=== PATIENT | female | born 1975 | race Hispanic/Latino ===

== ENCOUNTER 2018-01-17 21:06 | Observation (INO) | payer MEDICARE ==
[2018-01-17] MEDS ORDERED: NACL 0.9% 1000 ML 1,000 ML IV ONE (21:35)
[2018-01-17 22:11] LABS: Alanine Aminotransferase 9 units/L (7-56); Albumin 3.4 g/dL (3.9-5); BUN/Creatinine Ratio 17; Blood Urea Nitrogen 10 mg/dL (7-17); Calcium 8.3 mg/dL (8.4-10.2); Hemolysis Index 1
[2018-01-17] MEDS ORDERED: D50W (25GM) Syringe IV ONE ×2 (22:54→22:58)
[2018-01-18 00:12] LABS: WBC,Urine < 1.0 /HPF (0.0-6.0)
[2018-01-18 00:33] LABS: Color,Urine Yellow (Yellow)
[2018-01-18 00:34] LABS: Bilirubin,Urine Negative (Negative); Blood,Urine Negative (Negative); Protein,Urine <15 mg/dL mg/dL (Negative); Urobilinogen,Urine < 2.0 mg/dL (<2.0)
--- NOTE | 2018-01-18 01:06 | Emergency Department Report ---
ED General Adult HPI - General Chief complaint: Hypoglycemia Stated complaint: HYPOGLYCEMIA Time Seen by Provider: 01/17/18 21:23 Source: patient, EMS Mode of arrival: Stretcher Limitations: No Limitations - History of Present Illness Initial comments: Patient is a 42-year-old female who is presenting from [facility] for hypoglycemia. Patient has a history of hypoglycemic episodes and has to eat several small meals throughout the day. Patient has a history of gastric bypass surgery has been having episodes of hypoglycemia since. Patient is being treated currently for schizoaffective disorder and opioid abuse. Patient's blood sugar dropped into the 40s earlier today she was given D50 via EMS before arrival. Patient is at baseline at the moment. - Related Data Allergies Allergy/AdvReac Type Severity Reaction Status Date / Time codeine Allergy Anaphylaxis Verified 01/17/18 21:29 ondansetron [From Zofran] Allergy Anaphylaxis Verified 01/17/18 21:29 Penicillins Allergy Anaphylaxis Verified 01/17/18 21:29 ED Review of Systems ROS: Stated complaint: HYPOGLYCEMIA Other details as noted in HPI Comment: All other systems reviewed and negative ED Past Medical Hx - Past Medical History Previous Medical History?: Yes Hx Psychiatric Treatment: Yes Additional medical history: Gastric Bypass - Surgical History Past Surgical History?: Yes Hx Cholecystectomy: Yes Hx Appendectomy: Yes Additional Surgical History: Gastric Bypass ED Physical Exam - General Limitations: No Limitations General appearance: alert, in no apparent distress - Head Head exam: Present: atraumatic, normocephalic - Eye Eye exam: Present: normal appearance - ENT ENT exam: Present: mucous membranes moist - Neck Neck exam: Present: normal inspection - Respiratory Respiratory exam: Present: normal lung sounds bilaterally. Absent: respiratory distress, wheezes, rales, rhonchi - Cardiovascular Cardiovascular Exam: Present: regular rate, normal rhythm. Absent: systolic murmur, diastolic murmur, rubs, gallop - GI/Abdominal GI/Abdominal exam: Present: soft, normal bowel sounds. Absent: distended, tenderness, guarding, rebound - Extremities Exam Extremities exam: Present: normal inspection - Back Exam Back exam: Present: normal inspection - Neurological Exam Neurological exam: Present: alert, oriented X3 - Psychiatric Psychiatric exam: Present: normal affect, normal mood - Skin Skin exam: Present: warm, dry, intact, normal color. Absent: rash ED Course Vital Signs 01/17/18 21:22 Temperature 98.0 F Pulse Rate 107 H Respiratory 107 H Rate Blood Pressure 96/51 O2 Sat by Pulse 96 Oximetry ED Medical Decision Making - Lab Data Result diagrams: 01/17/18 21:36 - Medical Decision Making Patient had another hypoglycemic episode here in the emergency department where she dropped into the 28. Patient was given additional amp of D50. Patient is eating and drank is continued to be monitored. Patient's blood sugar dropped again to approximately 90 and decision was made to place the patient on D5 normal saline. Patient be admitted to the hospitalist service at this time. Critical care attestation.: If time is entered above; I have spent that time in minutes in the direct care of this critically ill patient, excluding procedure time. ED Disposition Clinical Impression: Hypoglycemia Disposition: DC-09 OP ADMIT IP TO THIS HOSP Is pt being admited?: Yes Does the pt Need Aspirin: No Condition: Stable Referrals: PRIMARY CARE, [Primary Care Provider] - 3-5 Days
[2018-01-18] MEDS ORDERED: D5NS 1,000 ML IV SCH (02:00)
[2018-01-18] MEDS ORDERED: D10W 250 ML IV ONE (04:00)
[2018-01-18] MEDS ORDERED: D10W 1,000 ML IV SCH (04:00)
--- NOTE | 2018-01-18 04:45 | History and Physical Report ---
CHIEF COMPLAINT: Recurrent hypoglycemia. HISTORY OF PRESENT ILLNESS: The patient is a 42-year-old female transferred from [facility] because of finding of recurrent hypoglycemia. The patient said she has been having these episodes of low blood sugar going on for some years, but became progressively worse and stated occurring multiple times since she was at the [facility]. The patient said because of these episodes she has to eat several small meals and noted that she has had history of gastric bypass and has been having these episodes of hypoglycemia since then. The patient is at the psychiatric facility receiving treatment for schizoaffective disorder and opioid abuse. There is no history of nausea or vomiting. No history of diarrhea and no history of shortness of breath or chest pain; however, the patient has been having symptoms of shaking of the body and sweating with the low blood sugar incident. PAST MEDICAL HISTORY: Pertinent for schizoaffective disorder and opioid abuse. Also, the patient has past medical history of recurrent hypoglycemia and there is past history of indigestion. PAST SURGICAL HISTORY: Pertinent for cholecystectomy, appendectomy, and gastric bypass surgery. FAMILY HISTORY: Family history is noncontributory. SOCIAL HISTORY: The patient is currently staying at the psychiatric facility, does not smoke, does not drink alcohol and does not use illicit drugs. MEDICATIONS: The patient's medications are not known at this time. ALLERGIES: THE PATIENT IS ALLERGIC TO CODEINE, ZOFRAN AND PENICILLIN. REVIEW OF SYSTEMS: CONSTITUTIONAL: There is no fever, no chills. Diaphoresis present. HEENT: There is no headache or sore throat. CARDIOVASCULAR: There is no chest pain or orthopnea. RESPIRATORY: There is no shortness of breath or cough. GASTROINTESTINAL: Abdominal discomfort noted. No diarrhea. No constipation. No nausea or vomiting. NEUROLOGICAL: There is no numbness, no dizziness, no altered mental status. MUSCULOSKELETAL: There is no joint pain or swelling. DERMATOLOGICAL: There is no skin rash or itching. GENITOURINARY: There is no dysuria, hematuria or flank pain. Rest of system review is normal. PHYSICAL EXAMINATION: GENERAL: At the time of exam, the patient was found to be alert, oriented x 3 and not in acute distress. VITAL SIGNS: Show temperature of 98 degrees Fahrenheit, pulse of 107, respiration of 16, blood pressure of 96/51 and O2 sat of 96% on room air. HEENT: Shows pupils to be equal, round, and reactive to light and accommodation. Extraocular muscles are intact. NECK: Supple with no JVD or carotid bruit. CARDIOVASCULAR: Shows normal first and second heart sounds with no gallops or murmurs. RESPIRATORY: Shows good air entry on both sides of the lungs with no abnormal breath sounds. GASTROINTESTINAL: Shows abdomen to be full, soft, nontender with protrusion in the epigastric area suggestive of possible hernia. Bowel sound is normal. NEUROLOGICAL: Shows no focal deficit. MUSCULOSKELETAL: Shows no joint swelling or tenderness. DERMATOLOGICAL: Shows no skin rash. GENITOURINARY: Showing no costovertebral angle tenderness. PERTINENT LABORATORY AND IMAGING STUDIES: The patient has chemistry done that shows a slightly low potassium level of 3.5, glucose level of 194 with decreased calcium level of 8.3 and also low albumin level of 3.4. Rest of chemistry is normal. Urinalysis was unremarkable. IMAGING STUDIES: No imaging studies were done at this time. DIAGNOSES: Recurrent hypoglycemia. PLAN OF ACTION: 1. The patient will be admitted to telemetry, and we will have Accu-Chek every hour. 2. The patient will be on IV D10W at 50 mL an hour for a total of 250 mL only. 3. The patient will be on p.r.n. medications like Tylenol 650 mg by mouth every 4 hours for fever and headache. 4. The patient will be on regular diet. JOB# [id number] OCN/ALICJA MTDD
--- NOTE | 2018-01-18 09:14 | Progress Note ---
Assessment and Plan Assessment and plan: Admitted Today Patient is a 42 yo woman from [facility] ([facility]) with history of Schizoaffective disorder, opioid abuse, morbid obesity s/p gastric bypass and recurrent hypoglycemia who presented to the ED this morning due to hypoglycemia. Patient's blood sugar dropped into the 40s prior to arrival and was given D50 by EMS -Recurrent hypoglycemia: monitor accucheck -H/O Gastric bypass with hypoglycemia, suspect HyperInsulinemic Hypoglycemia -Hypokalemia: replace and recheck AM d/c dextrose IV additive, if BG stays stable, then d/c tomorrow History Interval history: Patient was seen and examined. Follow-up on current diagnosis of low BG. Overnight uneventful. Patient denies any chest pain, shortness breath, nausea/ vomiting or severe headaches. Imaging, nursing note, chart, labs and old chart reviewed. Discussed with patient. Hospitalist Physical - Physical exam Narrative exam: GEN: WDWN, NAD, Awake, Alert, Orientated x 3 HEENT: NCAT, EOMI, PERRL, OP Clear NECK: supple, no adenopathy, no thyromegaly, no JVD CVS/HEART: RRR, normal S1S2, pulses present bilaterally CHEST/LUNGS: CTA B, Symmetrical chest expansion, good air entry bilaterally GI/Abdomen: soft, NTND, soft ventral hernia, good bowel sounds, no guarding or rebound /Bladder: no suprapubic tenderness, no CVA or paraspinal tenderness EXT/Skin: no c/c/e, no obvious rash MSK: FROM x 4 Neuro: CN 2-12 grossly intact, no new focal deficits Psych: calm - Constitutional Vitals: Temp Pulse Resp BP Pulse Ox 97.8 F 74 19 110/64 98 01/18/18 07:27 01/18/18 07:27 01/18/18 07:27 01/18/18 07:27 01/18/18 07:27 Results - Labs CBC & Chem 7: 01/17/18 21:36 Labs: Laboratory Last Values Sodium 140 mmol/L (137-145) 01/17/18 21:36 Potassium 3.5 mmol/L (3.6-5.0) L 01/17/18 21:36 Chloride 105.9 mmol/L (98-107) 01/17/18 21:36 Carbon Dioxide 24 mmol/L (22-30) 01/17/18 21:36 Anion Gap 14 mmol/L 01/17/18 21:36 BUN 10 mg/dL (7-17) 01/17/18 21:36 Creatinine 0.6 mg/dL (0.7-1.2) L 01/17/18 21:36 Estimated GFR > 60 ml/min 01/17/18 21:36 BUN/Creatinine Ratio 17 % 01/17/18 21:36 Glucose 194 mg/dL (65-100) H 01/17/18 21:36 POC Glucose 116 (70-105) H 01/18/18 07:26 Calcium 8.3 mg/dL (8.4-10.2) L 01/17/18 21:36 Total Bilirubin < 0.20 mg/dL (0.1-1.2) 01/17/18 21:36 AST 18 units/L (5-40) 01/17/18 21:36 ALT 9 units/L (7-56) 01/17/18 21:36 Alkaline Phosphatase 71 units/L (35-129) 01/17/18 21:36 Total Protein 6.2 g/dL (6.3-8.2) L 01/17/18 21:36 Albumin 3.4 g/dL (3.9-5) L 01/17/18 21:36 Albumin/Globulin Ratio 1.2 % 01/17/18 21:36 Urine Color Yellow (Yellow) 01/17/18 22:36 Urine Turbidity Clear (Clear) 01/17/18 22:36 Urine pH 5.0 (5.0-7.0) 01/17/18 22:36 Ur Specific Elida 1.010 (1.003-1.030) 01/17/18 22:36 Urine Protein <15 mg/dl mg/dL (Negative) 01/17/18 22:36 Urine Glucose (UA) 3+ mg/dL (Negative) 01/17/18 22:36 Urine Ketones Negative mg/dL (Negative) 01/17/18 22:36 Urine Blood Negative (Negative) 01/17/18 22:36 Urine Nitrite Negative (Negative) 01/17/18 22:36 Ur Reducing Substances Not Reportable 01/17/18 22:36 Urine Bilirubin Negative (Negative) 01/17/18 22:36 Urine Ictotest Not Reportable 01/17/18 22:36 Urine Urobilinogen < 2.0 mg/dL (<2.0) 01/17/18 22:36 Ur Leukocyte Esterase Negative (Negative) 01/17/18 22:36 Urine WBC (Auto) < 1.0 /HPF (0.0-6.0) 01/17/18 22:36 Urine RBC (Auto) 1.0 /HPF (0.0-6.0) 01/17/18 22:36 U Epithel Cells (Auto) 1.0 /HPF (0-13.0) 01/17/18 22:36
[2018-01-18] MEDS: ABILIFY PO SCH ×2 (10:51→21:21)
[2018-01-18] MEDS: LEXAPRO PO SCH (10:52)
[2018-01-18] MEDS: FEOSOL PO SCH (10:52)
[2018-01-18] MEDS ORDERED: K-DUR PO ONE ×2 (11:51→18:50)
[2018-01-18] MEDS: NEURONTIN PO SCH ×2 (15:23→21:21)
[2018-01-18] MEDS: TYLENOL PO PRN (18:03)
[2018-01-18] MEDS ORDERED: ARIPIPRAZOLE 20 MG PO SCH (22:00)
[2018-01-19 06:47] LABS: Hemoglobin 10.3 gm/dl (10.1-14.3); Mean Corpuscular HGB Conc 32 % (30-34); Mean Corpuscular Volume 74 fl (79-97); Platelet Count 265 K/mm3 (140-440); Red Blood Count 4.34 M/mm3 (3.65-5.03)
[2018-01-19 07:07] LABS: BUN/Creatinine Ratio 10; Blood Urea Nitrogen 6 mg/dL (7-17); Calcium 8.5 mg/dL (8.4-10.2); Hemolysis Index 5; Mean Corpuscular Hemoglobin 24 pg (28-32); Red Cell Distribution Width 22.7 % (13.2-15.2)
[2018-01-19] MEDS: NEURONTIN PO SCH ×3 (08:04→22:13)
[2018-01-19] MEDS: TYLENOL PO PRN (08:24)
[2018-01-19] MEDS: FEOSOL PO SCH (10:06)
[2018-01-19] MEDS: LEXAPRO PO SCH (10:06)
[2018-01-19] MEDS: ABILIFY PO SCH ×2 (10:07→22:14)
--- NOTE | 2018-01-19 10:12 | Progress Note ---
Assessment and Plan Assessment and plan: -Recurrent hypoglycemia: Continue to monitor accucheck Patient with H/O Gastric bypass with hypoglycemia, etiology likely secondary to HyperInsulinemic Hypoglycemia -Hypokalemia: Replete it -Schizoaffective disorder. We will transfer back to [place] when blood glucose stabilized. History Interval history: No new issues overnight. No new hypoglycemic episodes. Hospitalist Physical - Constitutional Vitals: Temp Pulse Resp BP Pulse Ox 98.5 F 72 20 107/65 98 01/19/18 08:05 01/19/18 08:12 01/19/18 08:24 01/19/18 08:05 01/19/18 08:12 General appearance: Present: no acute distress, well-nourished - EENT Eyes: Present: PERRL, EOM intact ENT: hearing intact, clear oral mucosa, dentition normal - Neck Neck: Present: supple, normal ROM - Respiratory Respiratory effort: normal Respiratory: bilateral: CTA - Cardiovascular Rhythm: regular Heart Sounds: Present: S1 & S2. Absent: gallop, rub - Extremities Extremities: no ischemia, No edema, Full ROM - Abdominal General gastrointestinal: soft, non-tender, non-distended, normal bowel sounds - Integumentary Integumentary: Present: clear, warm, dry - Neurologic Neurologic: CNII-XII intact, moves all extremities Results - Labs CBC & Chem 7: 01/19/18 06:27 01/19/18 06:27 Labs: Laboratory Last Values WBC 4.7 K/mm3 (4.5-11.0) 01/19/18 06:27 RBC 4.34 M/mm3 (3.65-5.03) 01/19/18 06:27 Hgb 10.3 gm/dl (10.1-14.3) 01/19/18 06:27 Hct 32.0 % (30.3-42.9) 01/19/18 06:27 MCV 74 fl (79-97) L 01/19/18 06:27 MCH 24 pg (28-32) L 01/19/18 06:27 MCHC 32 % (30-34) 01/19/18 06:27 RDW 22.7 % (13.2-15.2) H 01/19/18 06:27 Plt Count 265 K/mm3 (140-440) 01/19/18 06:27 Sodium 140 mmol/L (137-145) 01/19/18 06:27 Potassium 4.6 mmol/L (3.6-5.0) D 01/19/18 06:27 Chloride 103.3 mmol/L (98-107) 01/19/18 06:27 Carbon Dioxide 26 mmol/L (22-30) 01/19/18 06:27 Anion Gap 15 mmol/L 01/19/18 06:27 BUN 6 mg/dL (7-17) L 01/19/18 06:27 Creatinine 0.6 mg/dL (0.7-1.2) L 01/19/18 06:27 Estimated GFR > 60 ml/min 01/19/18 06:27 BUN/Creatinine Ratio 10 % 01/19/18 06:27 Glucose 78 mg/dL (65-100) 01/19/18 06:27 POC Glucose 72 (70-105) 01/19/18 07:14 Calcium 8.5 mg/dL (8.4-10.2) 01/19/18 06:27 Total Bilirubin < 0.20 mg/dL (0.1-1.2) 01/17/18 21:36 AST 18 units/L (5-40) 01/17/18 21:36 ALT 9 units/L (7-56) 01/17/18 21:36 Alkaline Phosphatase 71 units/L (35-129) 01/17/18 21:36 Total Protein 6.2 g/dL (6.3-8.2) L 01/17/18 21:36 Albumin 3.4 g/dL (3.9-5) L 01/17/18 21:36 Albumin/Globulin Ratio 1.2 % 01/17/18 21:36 Urine Color Yellow (Yellow) 01/17/18 22:36 Urine Turbidity Clear (Clear) 01/17/18 22:36 Urine pH 5.0 (5.0-7.0) 01/17/18 22:36 Ur Specific Harrington 1.010 (1.003-1.030) 01/17/18 22:36 Urine Protein <15 mg/dl mg/dL (Negative) 01/17/18 22:36 Urine Glucose (UA) 3+ mg/dL (Negative) 01/17/18 22:36 Urine Ketones Negative mg/dL (Negative) 01/17/18 22:36 Urine Blood Negative (Negative) 01/17/18 22:36 Urine Nitrite Negative (Negative) 01/17/18 22:36 Ur Reducing Substances Not Reportable 01/17/18 22:36 Urine Bilirubin Negative (Negative) 01/17/18 22:36 Urine Ictotest Not Reportable 01/17/18 22:36 Urine Urobilinogen < 2.0 mg/dL (<2.0) 01/17/18 22:36 Ur Leukocyte Esterase Negative (Negative) 01/17/18 22:36 Urine WBC (Auto) < 1.0 /HPF (0.0-6.0) 01/17/18 22:36 Urine RBC (Auto) 1.0 /HPF (0.0-6.0) 01/17/18 22:36 U Epithel Cells (Auto) 1.0 /HPF (0-13.0) 01/17/18 22:36
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
[2018-01-19] MEDS: D50W (25GM) Syringe IV PRN (20:36)
[2018-01-20] MEDS: TYLENOL PO PRN ×4 (08:09→21:38)
[2018-01-20] MEDS: NEURONTIN PO SCH ×3 (08:10→21:39)
--- NOTE | 2018-01-20 08:57 | Discharge Summary ---
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 (voluntary) with history of Schizoaffective disorder, opioid abuse, morbid obesity s/p gastric bypass and recurrent hypoglycemia who presented to the ED on 01/18/18 due to hypoglycemia. Patient's blood sugar dropped into the 40s prior to arrival and was given D50 by EMS. Patient was felt to have diagnosis of hyperinsulinemia hypoglycemia secondary to her gastric bypass surgery. Patient was treated with D10 and her blood sugars stabilize. I educated the patient that she would need to be on her bariatric diet to prevent future episodes with low volume, liquid meals and frequent meals every 2 hours. The patient will be discharged back to [facility]. Dedicated discharge time 32 minutes. Disposition: DC-01 TO HOME OR SELFCARE Time spent for discharge: 32 - Discharge Diagnoses (1) Hypoglycemia Status: Acute Core Measure Documentation - Palliative Care Palliative Care/ Comfort Measures: Not Applicable - Core Measures Any of the following diagnoses?: none Exam - Constitutional Vitals: Temp Pulse Resp BP Pulse Ox 98.1 F 61 18 108/64 97 01/19/18 15:23 01/19/18 23:00 01/19/18 15:23 01/19/18 15:23 01/19/18 15:23 General appearance: Present: no acute distress, well-nourished - EENT Eyes: Present: PERRL ENT: hearing intact, clear oral mucosa - Neck Neck: Present: supple, normal ROM - Respiratory Respiratory effort: normal Respiratory: bilateral: CTA - Cardiovascular Heart Sounds: Present: S1 & S2. Absent: rub, click - Extremities Extremities: pulses symmetrical, No edema Peripheral Pulses: within normal limits - Abdominal General gastrointestinal: Present: soft, non-tender, non-distended, normal bowel sounds Female genitourinary: Present: normal - Integumentary Integumentary: Present: clear, warm, dry - Musculoskeletal Musculoskeletal: gait normal, strength equal bilaterally - Psychiatric Psychiatric: appropriate mood/affect, intact judgment & insight - Neurologic Neurologic: CNII-XII intact, moves all extremities Plan Activity: no restrictions Weight Bearing Status: Full Weight Bearing Diet: other (bariatric diet) Follow up with: PRIMARY CARE, [Primary Care Provider] - 3-5 Days Prescriptions: ARIPiprazole [Aripiprazole] 10 mg PO DAILY #30 tablet Escitalopram [Lexapro] 10 mg PO DAILY #30 tablet Ferrous Sulfate [Iron] 325 mg PO DAILY #30 tablet Gabapentin [Neurontin] 400 mg PO TID #90 capsule
[2018-01-20] MEDS: FEOSOL PO SCH (11:08)
[2018-01-20] MEDS: LEXAPRO PO SCH (11:08)
[2018-01-20] MEDS: ABILIFY PO SCH ×2 (11:10→21:39)
--- NOTE | 2018-01-20 12:47 | Progress Note ---
Subjective - Reason for Consult Consult date: 01/20/18 Reason for consult: Psychiatry Follow-up - Chief Complaint Chief complaint: "I feel better" 42-year-old white female who presents from [facility] for hypoglycemia. Today the patient is calm and cooperative during the assessment. She stated that she feels much better since being back on her medications. She denies SI/HI 's and AVH's. She denies any side effects of her medications. She stated that she plan to follow up with her psychiatrist Dr Perez for outpatient psy services when discharged. . Mental Status Exam - Vital signs Last Vital Signs Temp 97.9 F 01/20/18 08:04 Pulse 71 01/20/18 08:04 Resp 16 01/20/18 08:04 BP 106/70 01/20/18 08:04 Pulse Ox 99 01/20/18 08:04 - Exam Narrative exam: MSE: Appearance: calm, cooperative Behavior: regular eye contact Speech: regular rate and low tone Mood: "much better" Affect: congruent to mood Thought Process: linear Thought Content: denies SI/HI's and AVH's Motor Activity: ambulatory Cognition: A/O x 3 Insight: appropriate Judgment: appropriate Assessment and Plan Impression: Hx of Schizoaffective Disorder, Bipolar Type per the record. Today the patient is calm and cooperative during the assessment. The patient is no threat to self. DDx: R/O Bipolar DO with psychosis Recommendation/Plan: Continue Abilify 10 mg PO QAM, 20 mg PO QHS for mood/ psychosis, Lexapro 10 mg PO QAM for depression/anxiety, and Klonopin 0.5 mg PO TID for anxiety. Discussed possible metabolic side effects of Abilify with the patient. Also, discussed the possible suicidality/medication induced candelaria with patient reference Lexapro. The patient can follow up with her psychiatrist Dr Perez for outpatient psy services. Psychiatry sign off.
--- NOTE | 2018-01-20 13:34 | Progress Note ---
Assessment and Plan Assessment and plan: -Recurrent hypoglycemia: Continue to monitor accucheck Patient with H/O Gastric bypass with hypoglycemia, etiology likely secondary to HyperInsulinemic Hypoglycemia Patient will be counseled regarding bariatric diet upon discharge. -Hypokalemia: Replete it -Schizoaffective disorder. We will transfer back to [place] when blood glucose stabilized. - Patient Problems (1) Hypoglycemia Current Visit: Yes Status: Acute History Interval history: No new issues overnight. Patient with a hypoglycemic episode last evening Hospitalist Physical - Constitutional Vitals: Temp Pulse Resp BP Pulse Ox 97.9 F 71 16 106/70 99 01/20/18 08:04 01/20/18 08:04 01/20/18 08:04 01/20/18 08:04 01/20/18 08:04 General appearance: Present: no acute distress, well-nourished - EENT Eyes: Present: PERRL, EOM intact ENT: hearing intact, clear oral mucosa, dentition normal - Neck Neck: Present: supple, normal ROM - Respiratory Respiratory effort: normal Respiratory: bilateral: CTA - Cardiovascular Rhythm: regular Heart Sounds: Present: S1 & S2. Absent: gallop, rub - Extremities Extremities: no ischemia, No edema, Full ROM - Abdominal General gastrointestinal: soft, non-tender, non-distended, normal bowel sounds - Integumentary Integumentary: Present: clear, warm, dry - Neurologic Neurologic: CNII-XII intact, moves all extremities Results - Labs CBC & Chem 7: 01/19/18 06:27 01/19/18 20:29 Labs: Laboratory Last Values WBC 4.7 K/mm3 (4.5-11.0) 01/19/18 06:27 RBC 4.34 M/mm3 (3.65-5.03) 01/19/18 06:27 Hgb 10.3 gm/dl (10.1-14.3) 01/19/18 06:27 Hct 32.0 % (30.3-42.9) 01/19/18 06:27 MCV 74 fl (79-97) L 01/19/18 06:27 MCH 24 pg (28-32) L 01/19/18 06:27 MCHC 32 % (30-34) 01/19/18 06:27 RDW 22.7 % (13.2-15.2) H 01/19/18 06:27 Plt Count 265 K/mm3 (140-440) 01/19/18 06:27 Sodium 140 mmol/L (137-145) 01/19/18 06:27 Potassium 4.6 mmol/L (3.6-5.0) D 01/19/18 06:27 Chloride 103.3 mmol/L (98-107) 01/19/18 06:27 Carbon Dioxide 26 mmol/L (22-30) 01/19/18 06:27 Anion Gap 15 mmol/L 01/19/18 06:27 BUN 6 mg/dL (7-17) L 01/19/18 06:27 Creatinine 0.6 mg/dL (0.7-1.2) L 01/19/18 06:27 Estimated GFR > 60 ml/min 01/19/18 06:27 BUN/Creatinine Ratio 10 % 01/19/18 06:27 Glucose 62 mg/dL (65-100) L 01/19/18 20:29 POC Glucose 103 (70-105) 01/20/18 12:37 Calcium 8.5 mg/dL (8.4-10.2) 01/19/18 06:27 Total Bilirubin < 0.20 mg/dL (0.1-1.2) 01/17/18 21:36 AST 18 units/L (5-40) 01/17/18 21:36 ALT 9 units/L (7-56) 01/17/18 21:36 Alkaline Phosphatase 71 units/L (35-129) 01/17/18 21:36 Total Protein 6.2 g/dL (6.3-8.2) L 01/17/18 21:36 Albumin 3.4 g/dL (3.9-5) L 01/17/18 21:36 Albumin/Globulin Ratio 1.2 % 01/17/18 21:36 Urine Color Yellow (Yellow) 01/17/18 22:36 Urine Turbidity Clear (Clear) 01/17/18 22:36 Urine pH 5.0 (5.0-7.0) 01/17/18 22:36 Ur Specific [place] 1.010 (1.003-1.030) 01/17/18 22:36 Urine Protein <15 mg/dl mg/dL (Negative) 01/17/18 22:36 Urine Glucose (UA) 3+ mg/dL (Negative) 01/17/18 22:36 Urine Ketones Negative mg/dL (Negative) 01/17/18 22:36 Urine Blood Negative (Negative) 01/17/18 22:36 Urine Nitrite Negative (Negative) 01/17/18 22:36 Ur Reducing Substances Not Reportable 01/17/18 22:36 Urine Bilirubin Negative (Negative) 01/17/18 22:36 Urine Ictotest Not Reportable 01/17/18 22:36 Urine Urobilinogen < 2.0 mg/dL (<2.0) 01/17/18 22:36 Ur Leukocyte Esterase Negative (Negative) 01/17/18 22:36 Urine WBC (Auto) < 1.0 /HPF (0.0-6.0) 01/17/18 22:36 Urine RBC (Auto) 1.0 /HPF (0.0-6.0) 01/17/18 22:36 U Epithel Cells (Auto) 1.0 /HPF (0-13.0) 01/17/18 22:36
[2018-01-20] MEDS ORDERED: REGLAN IV PRN (18:01)
[2018-01-21] MEDS: TYLENOL PO PRN ×2 (08:11→14:59)
[2018-01-21] MEDS: LEXAPRO PO SCH (09:40)
[2018-01-21] MEDS: NEURONTIN PO SCH ×2 (09:40→14:59)
[2018-01-21] MEDS: FEOSOL PO SCH (09:41)
[2018-01-21] MEDS: ABILIFY PO SCH (09:41)
[2018-01-21 16:23] VITALS: BP 101/65
[2018-01-21] MEDS: D50W (25GM) Syringe IV PRN (20:00)
== END 2018-01-21 21:15 | disposition home or self-care (01) ==
LOC: ED 21:06 → UNDOADMIN 01-18 02:06 → 4A 01-18 02:06
PROVIDERS: ADMIT Internal Medicine; ATTEND Hospitalist
DX: E16.2 Hypoglycemia, unspecified (principal); E87.6 Hypokalemia; F25.0 Schizoaffective disorder, bipolar type; Z98.84 Bariatric surgery status
CPT/HCPCS: 36415; 80048; 80053; 81001; 82947; 82962; 85027; 96361; 96374; 96376; 99285; 99406; G0378; J7030